=== PATIENT | female | born 1990 | race African-American/Black ===

== ENCOUNTER 2020-08-11 07:34 | Emergency (ER) | payer MEDICARE, MEDICAID ==
[~2020-08-11] VITALS: Ht 172.7 cm; Wt 100.0 kg
--- NOTE | 2020-08-11 07:34 | NUR ---
0730 ARRIVED TO ER PER EMS WITH CPR IN PROGRESS. PATIENT FOUND DOWN AT HOME PER ROOMMATE. PLACED IN ER BED #5 WITH STAFF RESUMING CPR.
[2020-08-11 07:37] VITALS: BP 0/0
--- NOTE | 2020-08-11 07:40 | NUR ---
CODE BLUE IN PROGRESS. STAFF ATTEMPTING TO OBTAIN IV ACCESS. I/O IS PRESENT IN LEFT UPPER ARM.
--- NOTE | 2020-08-11 07:43 | NUR ---
PATIENT REMAINS WITH ASYSTOLE DESPITE CONTINUOUS CPR. CODE CALLED TO END PER DR. NIETO.
--- NOTE | 2020-08-11 08:00 | NUR ---
AUDI CALLED TO OBTAIN PT'S HOME PHONE # PT'S HOME PHONE CALLED AND MOTHER ANSWERED. PT WAS INFORMED THAT HER DAUGHTER WAS IN THE ER AND THAT SHE IS REQUESTED TO COME IN. MOTHER IS NOTIABLY UPSET AND INSISTING ON BEING INFORMED OF THE PT'S STATUS. DR NIETO INFORMED AND AUTHORIZED THAT NOTICE BE GIVEN TO FAMILY. MOTHER WAS THEN INFORMED OF HER DAUGHTERS PASSING AT WHICH TIME PT'S SIBLING GOT ON THE PHONE AND WAS ALSO INFORMED OF HIS SISTERS PASSING. IT WAS REQUESTED THAT HE BRING HIS MOTHER IN TO SPEAK WITH WITH DR NIETO. BOTHER STATES THAT HE WILL BRING MOTHER IN [place]. DR NIETO NOTIFIED THAT FAMILY IS AWARE OF PT'S STATUS.
--- NOTE | 2020-08-11 08:27 | NUR ---
pt brought in by ems at 0730 found down cpr inprogress when brought in and transfured to our gurney and placed on our monitors cpr was continued meds given was unable to get ROSS called by dr pennington at 07 comfuimed no heart be by ultra sound. with phyical examuantion no injruys noted but had swelliing to R leg. supervisor sewer system notifed at 0830 along with doner network at 0825
== END 2020-08-11 10:10 | disposition expired ==
LOC: EDBD 07:35 → ER 07:35
DX: I46.9 Cardiac arrest, cause unspecified (principal); R06.81 Apnea, not elsewhere classified
CPT/HCPCS: 31500; 92950; 99285